=== PATIENT | male | born 1975 | race Hispanic/Latino ===

== ENCOUNTER 2021-12-23 05:30 | Emergency (ER) | payer OTHER | END 2021-12-23 06:43 | LOC: NAV ERS 05:30 | DX: S83.91XA Sprain of unspecified site of right knee, initial encounter (principal); K21.9 Gastro-esophageal reflux disease without esophagitis; I10 Essential (primary) hypertension; Z79.899 Other long term (current) drug therapy; W18.2XXA Fall in (into) shower or empty bathtub, initial encounter ==

== ENCOUNTER 2022-06-17 13:07 | Emergency (ER) | payer OTHER | END 2022-06-17 14:25 | LOC: NAV ERS 13:07 | DX: T78.3XXA Angioneurotic edema, initial encounter (principal); I10 Essential (primary) hypertension; K21.9 Gastro-esophageal reflux disease without esophagitis; Z79.899 Other long term (current) drug therapy | CPT/HCPCS: 99284 ==